=== PATIENT | male | born 1975 | race African-American/Black ===

== ENCOUNTER 2024-08-18 08:44 | Inpatient (IN) | payer BC ==
[2024-08-18 09:33] LABS: BASOPHILS ABSOLUTE AUTO 0.1 K/mm3 (0.0-0.2); BASOPHILS PERCENT AUTO 0.8 % (0.0-1.0); EOSINOPHILS ABSOLUTE AUTO 0.3 K/mm3 (0.0-0.4); EOSINOPHILS PERCENT AUTO 5.1 % (0.0-6.0); HEMATOCRIT 42.7 % (42.0-52.0); HEMOGLOBIN 14.7 gm/dl (14.0-18.0); IMMATURE GRAN ABSOLUTE AUTO 0.03 K/mm3 (0.00-0.05); IMMATURE GRAN PERCENT AUTO 0.5 % (0.0-0.4); MEAN CORPUSCULAR HEMOGLOBIN 28.7 pg (28.0-32.0); MEAN CORPUSCULAR HGB CONC 34.4 g/dl (32.0-36.0); MEAN CORPUSCULAR VOLUME 83.2 fl (83.0-99.0); MEAN PLATELET VOLUME 9.4 fl (9.4-12.4); MONOCYTES ABSOLUTE AUTO 0.7 K/mm3 (0.0-0.8); MONOCYTES PERCENT AUTO 10.5 % (0.0-8.0); NEUTROPHILS ABSOLUTE AUTO 2.5 K/mm3 (1.8-7.7); NEUTROPHILS PERCENT AUTO 38.1 % (41.0-71.0); PLATELET COUNT,PLT 273 K/mm3 (150-400); RED BLOOD CELL COUNT 5.13 M/mm3 (4.52-5.90); WHITE BLOOD CELL COUNT,WBC 6.65 K/mm3 (3.9-11.3)
[2024-08-18] MEDS: Aspirin 81 MG Tab.Chew PO ONE (09:33)
[2024-08-18] MEDS: Labetalol 100 MG/20 ML MDV IVPUSH ONE (09:34)
[2024-08-18] MEDS: Sodium Chloride 0.9% 10 ML Syringe FLUSH PRN (09:37)
[2024-08-18 10:22] LABS: A/G RATIO 0.7 (1-2); ALBUMIN 3.3 g/dl (3.4-5.0); ANION GAP 12.4 (5-15); BILIRUBIN TOTAL 0.3 mg/dL (0.2-1.0); CALCIUM 8.6 mg/dL (8.5-10.1); CREATININE 1.2 mg/dL (0.7-1.3); EST CRCL DRUG DOSING (CG) 76.89 mL/min; POTASSIUM,K 3.4 mEq/L (3.5-5.1)
[2024-08-18] MEDS: Insulin Regular, Human 100 Units/ML 10 ML Vial IV ONE (12:26)
[2024-08-18 12:32] LABS: CORONAVIRUS COVID-19 NAA NEGATIVE (NEGATIVE); INFLUENZA A NAA NEGATIVE (NEGATIVE); RESPIRATORY SYNCYTIAL VIR NAA NEGATIVE (NEGATIVE)
[2024-08-18] MEDS: hydrALAZINE 20 MG/ML SDV IVPUSH ONE (15:23)
[2024-08-18] MEDS ORDERED: 50% Dextrose in Water 50 ML Syringe IVPUSH PRN (16:19)
[2024-08-18 16:43] LABS: CHOLESTEROL HDL 31 mg/dL (40-59); CHOLESTEROL LDL DIRECT 98 mg/dL (<100); CHOLESTEROL TOTAL 152 mg/dL (<200); TRIGLYCERIDES 153 mg/dL (<150)
[2024-08-18] MEDS: Insulin Lispro 100 Unit/ML 3 ML KwikPen SUBCUT SCH ×2 (17:34→21:42)
[2024-08-18] MEDS: Lisinopril 20 MG Tab PO SCH (17:34)
[2024-08-18] MEDS: amLODIPine 5 MG Tab PO ONE (20:19)
[2024-08-18] MEDS: Acetaminophen 325 MG Tab PO PRN (21:35)
[2024-08-18] MEDS ORDERED: Nitroglycerin 0.4 MG Tab.SL SL PRN (22:03)
[2024-08-18] MEDS: Benzonatate 100 MG Cap PO ONE (22:56)
[2024-08-18] MEDS: atorvaSTATin 40 MG Tab PO SCH (22:56)
[2024-08-19] MEDS ORDERED: Insulin Lispro 100 Unit/ML 3 ML KwikPen SUBCUT SCH (07:30)
[2024-08-19] MEDS: Enoxaparin 40 MG/0.4 ML Syringe SUBCUT SCH (08:19)
[2024-08-19] MEDS: Benzonatate 100 MG Cap PO SCH (08:19)
[2024-08-19 11:56] LABS: ANION GAP 10.6 (5-15); CALCIUM 8.8 mg/dL (8.5-10.1); EST CRCL DRUG DOSING (CG) 92.26 mL/min; MAGNESIUM 1.8 mg/dL (1.8-2.4); PHOSPHORUS 2.7 mg/dL (2.6-4.7); POTASSIUM,K 3.6 mEq/L (3.5-5.1)
[2024-08-19] MEDS: Magnesium Sulfate/Water Premix 2 GM/50 ML BAG IV ONE (14:39)
[2024-08-19] MEDS ORDERED: Sennosides/Docusate Sodium 50-8.6 MG Tab PO PRN (14:55)
[2024-08-19] MEDS: Potassium Phosphates 30 MMOLE in Sodium Chloride 0.9% 500 ML IV SCH (16:13)
[2024-08-19] MEDS: Insulin Glargine,Human Rec. Analog 100 Units/ML 3 ML Pen SUBCUT SCH (20:14)
[2024-08-20 07:03] LABS: ANION GAP 10.8 (5-15); CALCIUM 8.7 mg/dL (8.5-10.1); EST CRCL DRUG DOSING (CG) 92.26 mL/min; MAGNESIUM 1.8 mg/dL (1.8-2.4); PHOSPHORUS 3.8 mg/dL (2.6-4.7); POTASSIUM,K 3.8 mEq/L (3.5-5.1)
[2024-08-20] MEDS: Hydrochlorothiazide 12.5 MG Cap PO SCH (08:06)
[2024-08-20] MEDS: Insulin Glargine,Human Rec. Analog 100 Units/ML 3 ML Pen SUBCUT ONE (11:14)
[2024-08-20] MEDS: Potassium Chloride 20 MEQ Tab.ER PO ONE (11:15)
[2024-08-20] MEDS: Labetalol 100 MG/20 ML MDV IVPUSH PRN (12:10)
[2024-08-20] MEDS: Insulin Glargine,Human Rec. Analog 100 Units/ML 3 ML Pen SUBCUT SCH (20:43)
[2024-08-20] MEDS: Albuterol 0.083% 2.5 MG/3 ML Neb Soln NEB PRN (20:56)
[2024-08-21 07:06] LABS: ANION GAP 13.8 (5-15); BUN/CREATININE RATIO 11.8 (14-18); CALCIUM 8.9 mg/dL (8.5-10.1); CREATININE 1.1 mg/dL (0.7-1.3); EST CRCL DRUG DOSING (CG) 83.88 mL/min; MAGNESIUM 1.7 mg/dL (1.8-2.4); POTASSIUM,K 3.8 mEq/L (3.5-5.1)
[2024-08-21] MEDS: Hydrochlorothiazide 25 MG Tab PO SCH (08:34)
[2024-08-21] MEDS: Potassium Chloride 20 MEQ Tab.ER PO ONE (11:30)
[2024-08-21] MEDS: Insulin Glargine,Human Rec. Analog 100 Units/ML 3 ML Pen SUBCUT ONE (11:30)
[2024-08-21] MEDS: Magnesium Sulfate/Water Premix 4 GM in Premix Bag 1 BAG IV ONE (11:30)
[2024-08-21] MEDS: Insulin Glargine,Human Rec. Analog 100 Units/ML 3 ML Pen SUBCUT SCH (20:44)
[2024-08-22 07:11] LABS: ANION GAP 13.1 (5-15); BUN/CREATININE RATIO 14.2 (14-18); CREATININE 1.2 mg/dL (0.7-1.3); EST CRCL DRUG DOSING (CG) 76.89 mL/min; MAGNESIUM 1.9 mg/dL (1.8-2.4); POTASSIUM,K 4.1 mEq/L (3.5-5.1)
[2024-08-22] MEDS: Hydrochlorothiazide 25 MG Tab PO SCH (08:55)
[2024-08-22] MEDS ORDERED: Chlorthalidone 25 MG Tab PO SCH (09:00)
== END 2024-08-22 16:29 | disposition home or self-care (01) | DRG 199 ==
LOC: JD.ED 08:44 → OBSVTOIN 16:16 → INTOOBSV 16:16 → UNDOADMIN 16:16 → JD.MS 16:16
PROVIDERS: ADMIT Family Medicine; ATTEND Student in an Organized Health Care Education/Training Program
DX: I16.0 Hypertensive urgency (principal); I10 Essential (primary) hypertension; E83.39 Other disorders of phosphorus metabolism; J45.909 Unspecified asthma, uncomplicated; R07.9 Chest pain, unspecified; E78.00 Pure hypercholesterolemia, unspecified; E11.9 Type 2 diabetes mellitus without complications; E11.65 Type 2 diabetes mellitus with hyperglycemia; E87.6 Hypokalemia; E83.42 Hypomagnesemia; Z91.148 Patient's other noncompliance with medication regimen for other reason; Z79.84 Long term (current) use of oral hypoglycemic drugs; Z79.899 Other long term (current) drug therapy
CPT/HCPCS: 0241U; 36415; 71045; 71045-26; 80048; 80053; 80061; 82947; 83036; 83735; 84100; 84484; 85025; 85379; 93005; 93010; 94640; 94760; 96365; 96366; 96367; 96368; 96374; 96375; 96376; 99285; 99285-25; A9270-GY; G0378; J0360; J1650; J1815; J1815-GY; J1920; J3475; J3490; J7040; J7620-GY